=== PATIENT | female | born 1990 | race Caucasian/White ===

== ENCOUNTER 2018-02-26 08:43 | Day surgery (SDC) | payer OTHER ==
[2018-02-26] VITALS (8 sets, daily range): BP systolic 90–113; BP diastolic 67–87
[~2018-02-26] VITALS: Ht 160 cm; Wt 61.7 kg
[~2018-02-26 08:43] MED LIST: ATEN50TA PO; LORA1TAB PO; OXYC10TA7 PO; TIZA2TAB3 PO
[2018-02-26] MEDS: LACTATED RINGERS 1,000 ML IV PRN ×2 (09:10→12:33)
[2018-02-26] MEDS ORDERED: ceFAZolin INJECTION 1,000 MG in NS (IVPB) 50 ML IV ONE (09:15)
[2018-02-26] MEDS ORDERED: ONDANSETRON 4 MG/2 ML (SDV) Z0FRAN ONE (09:51)
[2018-02-26] MEDS ORDERED: DEXAMETHASONE 10 MG/ML (DECADRON) 1 ML VIAL ONE (09:51)
[2018-02-26] MEDS ORDERED: SEVOFLURANE (ULTANE) 15 ML INHAL SOLN ONE ×2 (09:51→12:02)
[2018-02-26] MEDS ORDERED: proPOfol 200 MG/20 ML (DIPRIVAN) VIAL IV ONE (09:51)
[2018-02-26] MEDS ORDERED: LIDOCAINE PF 2% 5 ML (XYLOCAINE) VIAL ONE (09:51)
[2018-02-26] MEDS ORDERED: MIDAZOLAM 2 MG/2 ML (VERSED) VIAL ONE (09:52)
[2018-02-26] MEDS ORDERED: BUPIVACAINE 0.25% 30 ML (SENSORCAINE) VIAL ONE (09:56)
[2018-02-26] MEDS ORDERED: fentaNYL INJECTION 100 MCG/2 ML AMP IV ONE (10:00)
--- NOTE | 2018-02-26 10:47 | Progress Note-Pre Operative ---
Pre-Operative Progress Note H&P Reviewed The H&P was reviewed, patient examined and no changes noted. Date Seen by Provider: Feb 26, 2018 Time Seen by Provider: 10:00 Date H&P Reviewed: Feb 26, 2018 Time H&P Reviewed: 09:30 Pre-Operative Diagnosis: Pelvic mass SIDNEY GERARDO DO Feb 26, 2018 10:46 am
--- NOTE | 2018-02-26 10:51 | Discharge Inst-Women's Service ---
Discharge Inst-Women's Serv Depart Medication/Instructions New, Converted or Re-Newed RX: RX on Chart Consults/Follow Up Additional Follow Up: Yes Orders/Referrals Dr Vincent in 7-10 days, and in 8 weeks Activity Activity: Activity as Tolerated Driving Instructions: No Driving for 1 Week NO SMOKING: NO SMOKING Nothing Inside Vagina: No Douching, No [place], No Tampons Diet Discharge Diet: No Restrictions Symptoms to Report to : Bleeding Excessive, Pain Increased, Fever Over 101 Degrees F, Vaginal Bleeding Increase, Questions/Concerns For Any Problems or Questions: Contact Your Physician Skin/Wound Care Infection Signs and Symptoms: Increased Redness, Foul Odor of Wound, Increased Drainage, Skin Itchy or Has a Rash, Increased Swelling, Temperature Above 101 F Operative Area Clean and Dry: Keep Incision Clean/Dry Stitches/Lolly/Dermabond: Dermabond, Care of Stitches Bathing Instructions: SIDNEY Swan DO Feb 26, 2018 10:51 am
[2018-02-26] MEDS ORDERED: ACHD5005 PO (10:53)
[2018-02-26] MEDS ORDERED: IBUP-1773 PO (10:53)
[2018-02-26] MEDS ORDERED: KETOROLAC 30 MG/ML VIAL IVP ONE (11:00)
[2018-02-26] MEDS ORDERED: ONDANSETRON 4 MG/2 ML (SDV) Z0FRAN IVP PRN ×2 (11:00→12:00)
[2018-02-26] MEDS ORDERED: HYDROcodone/APAP 5 MG/325 MG (LORTAB) TAB PO PRN (11:00)
[2018-02-26] MEDS ORDERED: GLYCOPYRROLATE 0.2 MG/ML (ROBINUL) 2 ML VIAL ONE (11:54)
[2018-02-26] MEDS ORDERED: NEOSTIGMINE 1 MG/ML 5 ML SYRINGE ONE (11:54)
[2018-02-26] MEDS ORDERED: fentaNYL INJECTION 100 MCG/2 ML AMP IVP ONE (12:00)
[2018-02-26] MEDS ORDERED: MEPERIDINE (DEMEROL) INJ 50 MG/ML IVP ONE (12:00)
[2018-02-26] MEDS ORDERED: morphine INJ 10 MG/ML 1ML (SYR OR VIAL) IVP ONE (12:00)
[2018-02-26] MEDS ORDERED: HYDROmorphone 2 MG/ML VIAL (DILAUDID) IV ONE (14:00)
[2018-02-26] MEDS ORDERED: OXYC1TAB12 PO (14:00)
[2018-02-26] MEDS ORDERED: HYDROmorphone (DILAUDID) 2 MG TAB PO ONE (14:15)
--- NOTE | 2018-02-26 18:11 | OPERATIVE REPORT ---
DATE OF SERVICE: PREOPERATIVE DIAGNOSIS: A 28-year-old female with acute onset pelvic pain and right ovarian cystic mass consistent with dermoid tumor. POSTOPERATIVE DIAGNOSIS: A 28-year-old female with acute onset pelvic pain and right ovarian cystic mass consistent with dermoid tumor. PROCEDURE: Right ovarian cystectomy laparoscopic with robotic assistance. SURGEON: Dr. Christ Vincent. NURSERY TEACHER: LAURENCE Davis. ANESTHESIA: General endotracheal. ESTIMATED BLOOD LOSS: Minimal. URINE OUTPUT: 30 mL clear at the end of the procedure. FLUIDS: 700 mL lactated Ringer solution. FINDINGS: An enlarged right ovary with a cystic mass incorporated into it measuring approximately 4 x 3 cm, grossly normal appearing left ovary and fallopian tube, grossly normal appearing uterus and right fallopian tube. SPECIMENS SENT: Right ovarian cyst. INDICATIONS: This 28-year-old female patient had seen previous provider, had imaging done of the pelvis finding a cyst consistent with dermoid. A followup imaging showed enlargement of this dermoid. The patient began having pain. She was then referred further to my care for this to be evaluated and treated. I discussed with the patient proceeding with laparoscopic removal with robotic assistance so that it allow me to not only remain minimally invasive, but likely preserve her ovary. She is agreeable to proceed with this, risk of the procedure was discussed with the patient in detail including risk of bleeding, infection, damage to surrounding structures including, but not limited to bowel, bladder, ureter, kidneys. Postoperative and preoperative expectations as well as recovery timeframe were all discussed with the patient. After all of her questions were answered, consent was obtained. The patient was taken to the operating room. OPERATIVE REPORT IN DETAIL: Once in the operating room, general anesthesia was found to be adequate, placed in dorsal lithotomy position, prepped and draped in normal sterile fashion. A Medrano catheter was placed using sterile technique. A weighted speculum was inserted into the patient's vagina. A right angle retractor used to visualize the cervix, which was grasped with a long Allis clamp. I then gently sound the uterine cavity, depth was found to be 8 cm and placed a [email or web address] uterine manipulator into the uterine cavity deploying the balloon and using that as my manipulation. I removed the long Allis clamp and all the other instruments from the patient's vagina. Medrano catheter was left in place. I performed a change of gloves and took my attention to the abdomen where infraumbilically I infiltrated this area using 0.25% Marcaine to make an 8 mm incision and extended to 12 mm incision using a knife and introduced a Veress needle through the incision until the intraperitoneal placement was confirmed using a saline drop test. Opening pressure was 6 mmHg was noted. I proceed to a maximum pressure of 15 mmHg at which point I removed the Veress needle and introduced a 12 mm trocar that is blunt. I am able to confirm a trocar placement using the da Harmeet laparoscope. I then placed two lateral trocars after the patient was placed in steep Trendelenburg and all my findings were seen as listed above. The lateral trocars were both 8 mm trocars. The skin was infiltrated with 0.25% Marcaine, 8 mm incisions were made and trocars were placed under direct visualization of the laparoscope. Once these were in place, I began da Harmeet robot and docked in the appropriate fashion placing the fenestrated bipolar graspers in the left hand and monopolar shayan in the right hand. I performed the dissection on the right ovary first by elevating it. I photo document all of the pelvic anatomy prior to starting the procedure as well as while I am dissecting the cyst out of the ovary. A window was found in the ovarian capsule. Next, in this window to open up and identified the cyst without rupturing it. I done this performing sharp dissection with the monopolar shayan. I made an incision down the ovarian capsule exposing the ovarian cyst and I am able to shell it out without rupture with careful meticulous dissection and hemostasis was achieved during this process. Once the cyst was completely removed from the ovary. The ovary does have a lot of redundant capsular tissue; however, the parenchyma does appear normal healthy and intact. I covered the parenchyma of the ovary that is still open with FloSeal to ensure excellent postoperative hemostasis. The left ovary was identified and found to be normal at which point I converted to an 8 mm scope, so I can visualize from my left incision point. After undocking the da Harmeet robot, I am able to document placement of the cyst into an Endopouch bag which was then removed through the 12 mm trocar site. Insufflation was released. At that point, once the specimen is bagged and excellent hemostasis was noted. The lateral trocars were removed under direct visualization of the laparoscope. The infraumbilical trocar incision has to be extended using a knife and Lin scissors to extend the fascia to allow removal for this ovarian cyst. Once it was removed, I reapproximated the fascia after releasing insufflation. I reapproximated the fascia of the larger infraumbilical incision using 0 Vicryl suture in running fashion. The skin was reapproximated using 4-0 Monocryl in a running subcuticular. The lateral trocar sites and the skin was closed using 4-0 Monocryl interrupted subcuticular stitches. Dermabond applied to all the incisions and bandages were placed over these. The patient tolerated the procedure well and was taken to recovery area in stable condition. A Kronner and a Medrano catheter were then removed. Lap and sponge counts were correct at the end of the procedure. Instrument count was correct as well. 1 gram of Ancef given preoperatively for infection prophylaxis. Job ID: [id number] DocumentID: [id number] Dictated Date: 02/26/2018 13:19:23 Concrete Analyst Date: 02/26/2018 18:10:20 Dictated By: CHRIST VINCENT DO
[2018-02-26] MEDS: KETOROLAC 30 MG/ML VIAL IVP PRN ×2 (18:23→23:37)
[2018-02-26] MEDS: oxyCODONE/APAP 10/325MG (PERCOCET 10) TABLET PO PRN (18:43)
[2018-02-26] MEDS ORDERED: PROMETHAZINE INJ 25 MG/ML (PHENERGAN) AMP ONE (22:25)
[2018-02-26] MEDS ORDERED: NS (IVPB) 50 ML ONE (22:25)
[2018-02-26] MEDS ORDERED: PROMETHAZINE INJ 25 MG/ML (PHENERGAN) AMP IVP ONE (22:45)
[2018-02-26] MEDS: D5 LR IV SOLUTION 1,000 ML IV SCH (22:58)
[2018-02-27] MEDS: oxyCODONE/APAP 10/325MG (PERCOCET 10) TABLET PO PRN ×2 (01:32→07:54)
[2018-02-27] MEDS: D5 LR IV SOLUTION 1,000 ML IV SCH (02:17)
[2018-02-27] MEDS: KETOROLAC 30 MG/ML VIAL IVP PRN (06:17)
[2018-02-27 06:19] VITALS: BP 88/62
[2018-02-27 08:00] VITALS: BP 94/65
[2018-02-27 09:20] VITALS: BP 94/65
== END 2018-02-27 09:20 | disposition home or self-care (01) ==
LOC: EDBD → SDC 08:43 → WS 17:45 → SDC 02-27 09:20
PROVIDERS: ATTEND Obstetrics & Gynecology
DX: D27.0 Benign neoplasm of right ovary (principal); I10 Essential (primary) hypertension; R00.0 Tachycardia, unspecified; F17.210 Nicotine dependence, cigarettes, uncomplicated; Z79.899 Other long term (current) drug therapy
CPT/HCPCS: 88307; 94664